=== PATIENT | female | born 1995 | race African-American/Black ===

== ENCOUNTER → 2019-10-29 11:31 | Outpatient (CLI) | payer OTHER, SELFPAY ==
[2019-10-30 14:11] LABS: COVID19 Sendout Not Detected (Not Detect)
== END ==
PROVIDERS: Visit Provider Physician Assistant
DX: Z11.59 Encounter for screening for other viral diseases (principal)
CPT/HCPCS: 87635

== ENCOUNTER 2019-11-01 10:29 | Day surgery (SDC) | payer OTHER, SELFPAY ==
[2019-10-16 15:20] VITALS: BMI 21.7
[2019-11-01] VITALS (9 sets, daily range): BP systolic 85–126; BP diastolic 51–75; PULSE 61–681; RESP 10–97; TEMP 36.5–37.4; O2SAT 96–100; BMI 21.7
[2019-11-01] MEDS: LACTATED RINGERS 1,000 ML 42 ML IV (11:05)
--- NOTE | 2019-11-01 12:06 | PM.PREOP ---
Pre-operative Note COVID-19 COVID-19 status: Negative Interval Note History & Physical reviewed/Exam performed by Physician: Yes Changes to H&P: No
[2019-11-01] MEDS: CEFAZOLIN 2 GM/100 ML FROZ.PIGGY IV (12:30)
--- NOTE | 2019-11-01 13:06 | SUR.OPER ---
Supine on padded OR bed, head on pillow, arms secured on padded arm boards at <90 degrees abduction, legs uncrossed, safety belt at abdomen, right leg draped in sterile field, tape over blanket over left lower leg, hip bump on right.
[2019-11-01] MEDS: BUPIVACAINE 0.25% W/ EPI 30 ML VIAL INJ (13:15)
--- NOTE | 2019-11-01 13:19 | SUR.OPER ---
post op shoe
[2019-11-01] MEDS: HYDROCODONE/ACET 5/325 TABLET 1 TAB PO (15:38)
--- NOTE | 2019-11-01 15:42 | PM.OP.1 ---
Operative Date/Time/Diagnoses Date of procedure: 11/01/19 Time of procedure: 13:00 Pre-op diagnosis: 1. 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 Osteotomy with lengthening correction metatarsal, 4th, right CPT code 26014 2. Application unit planer external fixation system right, CPT code 12922 3. 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 She endorses this is painful and it rubs on her shoes and pulse her toes under. She has not had any treatment for this. She is having difficulty with her shoe and boot wear. She is in the . She is hoping to get correction of her toe deformity to help her tolerate her boot and work. The risks and benefits of the procedure have been discussed with the patient even opportunity to ask questions. The risks of surgery include but are not limited to infection, malunion, nonunion, persistence of pain, damage to nerves and blood vessels, posttraumatic arthritis, DVT, PE, cardiopulmonary complications and . The patient expressed a thorough understanding of the risks and benefits of surgery and has elected to proceed. Consent was signed in the office. Surgeon: Blanca Butler Click Yes if Unassisted: No Anesthesia Type: General and Local Operative Notes Findings: Right 4th toe shortened 4th metatarsal Closure Type: primary Specimen(s): none sent Prosthetic devices, grafts, tissues, transplants, or devices: Orthofix small mini rail, for short tapered half pins. 062 K-wire for 1st toe pinning Estimated Blood Loss (mL): 10 Blood products transfused: none Tourniquet time (min): 120 Procedure in detail: Patient was seen the preoperative area the site of surgery was marked informed consent confirmed. The patient was brought back to the operating room by the anesthesia team and placed supine on the operative table. All bony prominences well padded. General anesthetic was administered. An ipsilateral thigh bump was placed. The patient was brought to the end of the table. A well-padded thigh tourniquet was placed. Right lower extremities prepped and draped in the standard sterile fashion. A formal time-out procedure was performed confirming the patient's side and site of surgery administration of appropriate preoperative antibiotics. All were in agreement. Attention was turned to the right foot. The mini C-arm fluoroscopy unit was brought in and trajectory for 4th toe and 4th metatarsal incisions were marked out on the skin. K-wires were placed percutaneously through the mini rail system into the 4th metatarsal. There is some difficulty getting purchase distally and 1 on the proximal pins at skived into the 3rd a therefore this was removed and replaced. Visualization was improved through a approximately 3 cm longitudinal incision getting better access to the bone for placement of the half pins in the narrow bone. The far far pins were placed 1st followed by the near near pinned. Once the pins were placed appropriately perfect [place] lateral x-rays demonstrated good bone purchase. Then these were removed and replaced with the half pins on the T-handle through the mini rail system. Once these were secured the rail was removed and using the K-wire to drill holes and then osteotomy the osteotomy was made between the central 2 holes. This was fully mobilized. The mini rail was then replaced. Distraction was completed to demonstrate that the osteotomy was fully mobile. The incision was irrigated and closed. Then this was compressed and the mini rail secured making sure there was plenty of clearance between the skin. Tourniquet was released. Hemostasis was achieved. Then attention turned to the pinning of the right 4th toe across the MTP joint this was completed with an 062 K-wire and advanced across the MTP joint to the level of the 1st pin. Once this was completed the foot was cleaned and dressed with Xeroform gauze 4x4s Kerlix and an Ced wrap. In the postoperative shoe was placed. There were no immediate complications. All counts were correct. The patient was woken from anesthesia and taken to PACU in good condition. Complications: none Post-operative Condition: stable Disposition: PACU Plan for aftercare: Nonweightbearing for 1st week. Will use crutches. Follow up in clinic in 1 week when lengthening will start and partial weight-bearing in the postoperative shoe. Keep incision and wrapped clean and dry. Aspirin for DVT prophylaxis. Will plan for lengthening quarter turn 3 times a day starting on postoperative day 7
--- NOTE | 2019-11-01 15:49 | SUR.PHASEI ---
1535 Hand off for break relief. Pt A&O, drowsy, HOB elevated, eating applesauce in prep for PO Rx. Pain mild, denies nausea. Skin warm and dry, resp unlabored. Ice/elevation to RLE.
--- NOTE | 2019-11-01 17:09 | SUR.PHASEII ---
Pt to be nonweight bearing. Crutches obtained and training done by PT.
--- NOTE | 2019-11-01 17:16 | PT.IIE ---
Current Diagnoses Other reduction defects of right lower limb (11/01/19) Surgery Performed Operation Date: 11/01/19 12:15 Actual Procedures p right 4th metatarsal osteotomy & - Blanca Butler MD s gradual lengthening w/ external fixation device w/ 4th toe pinning - Blanca Butler MD Medical History (Last Updated 10/16/19 @ 15:25 by Sirisha Juan RN) Brachymetatarsia of right foot (Acute) Physical Therapy Inpatient Evaluation/Re-Eval M1 PT/OT-IP Prior Functional Status Start: 11/01/19 17:00 Freq: NEEDED Status: Discharge Protocol: Document 11/01/19 17:03 (Rec: 11/01/19 17:16 [id number]) Medical Review Prior Functional Status Medical History Reviewed Yes Diet/Fluid Consistency Regular Communication no deficits ntoed Mobility and Gait independent without AD. 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 Activities of Daily Living and IADL's independent without AD Social History Household Members none Living Arrangements Apartment/Condo Number of Floors (Floors) Two Floors Number of Stairs To Enter/Railing? 12 JEANETTE to 2nd floor with B rail Employment Status Environmental Services Supervisor Employed Additional Social History Comment Pt lives alone in an apt [facility]. M2 PT-IP Current Condition Start: 11/01/19 17:00 Freq: NEEDED Status: Discharge Protocol: Document 11/01/19 17:03 (Rec: 11/01/19 17:16 [id number]) Physical Therapy Current Condition Current Condition Evaluation Date 11/01/19 Treatment Diagnosis Osteotomy with lengthening correction metatarsal Onset Date 11/01/19 Weight Bearing Status Weight Bearing Status Non-Weight Bearing Allowed Weight Bearing Amount (enter % Nonweightbearing for 1st week. or #) (%) Will use crutches M3 PT-IP Subjective Start: 11/01/19 17:00 Freq: NEEDED Status: Discharge Protocol: Document 11/01/19 17:03 (Rec: 11/01/19 17:16 [id number]) Subjective Physical Therapy Visit Type Type Initial Evaluation Visit Start Time 16:20 Visit Stop Time 16:40 Total Visit Minutes 20 Notes friend in room attended session Number of LABORATORY IMMUNOLOGIST Visits 0 M4 PT-IP Mobility and Gait Start: 11/01/19 17:00 Freq: NEEDED Status: Discharge Protocol: Document 11/01/19 17:03 (Rec: 11/01/19 17:16 [id number]) PT-Transfer Assessment Sit to and From Stand Sit to and from Stand Standby Assistance,Use of Upper Extremities Equipment Transfer Assistive Device Axillary Crutches Transfers Transfer Destination Chair Transfer Technique Stand Step Pivot Transfer Ability Level of Assist Standby Assistance,Use of Upper Extremities Comments Mobility Comments see A&P Gait Assessment Gait Gait Assistance Required: Standby Assistance Distance (Feet) 15 Able to Maintain Weight Bearing Status No During Gait Assistive Devices Assistive Device Axillary Crutches Orthotic/Prosthetic Devices or Brace: Yes Gait Deviations General Gait Pattern Antalgic Factors Limiting Gait Function Factors Limiting Gait Function Decreased Activity Tolerance, Decreased Strength,Limited Range of Motion,Poor Balance Comments Gait Comments see A&P Stair Climbing Assessment Comments Stair Climbing Comments Educated pt on using single axillary crutch on R and L rail to hop with friend CGA if both rails are too wide apart . PT-Balance Assessment Sitting Balance and Reactions Static Sitting Balance Ability Normal Dynamic Sitting Balance Ability Normal Standing Balance and Reactions Static Standing Balance Ability Normal Dynamic Standing Balance Ability Normal Device Used crutches M5 PT-IP Objective Assessments Start: 11/01/19 17:00 Freq: NEEDED Status: Discharge Protocol: Document 11/01/19 17:03 (Rec: 11/01/19 17:16 [id number]) Orientation Orientation/Cognition Level of Alertness Alert Orientation Name,Age,Birthday,Month,Date, Year,Day of Week,Place, Situation Language Function Ability No Deficits Noted Safety Awareness Understands Safety Issues Memory Description No Deficits Noted Strength Lower Extremity Strength Assessment Right Impaired M6 PT-IP Treatment Start: 11/01/19 17:00 Freq: NEEDED Status: Discharge Protocol: Document 11/01/19 17:03 (Rec: 11/01/19 17:16 [id number]) Physical Therapy Treatment Education Education Provided Precautions,Weight Bearing Status,Safety Equipment Issued Equipment Type and Company Issued axillary crutches and gait belt to patient. Educated pt on 2 point pattern with hopping gait d/t NWB R foot. Also educated pt on stair climbing technique with use of 1 rail and axillary crutch on opposite side to support with friend's CGA. M7 PT-IP Assessment and Plan Start: 11/01/19 17:00 Freq: NEEDED Status: Discharge Protocol: Document 11/01/19 17:03 (Rec: 11/01/19 17:16 [id number]) PT Summary Assessment and Plan Summary Impairments Pain,ROM,Strength,Balance, Transfers,Gait,Activity Tolerance Progress Towards Goals Safe For Discharge Assessment Summary This is evaluation only for crutch training for this 23 yo female s/p Osteotomy with lengthening correction metatarsal d/t her brachymetatarsia. Pt demonstrates safe use of axillary crutches to amb within the room with NWB on her R foot. She does feel slightly unsteady d/t change of position and medication but she recovered after sitting break. Educated pt on stair climbing technique with use of 1 rail and axillary crutch on opposite side to hop on steps and pt understood since she used crutches before. Recommended her to have friends over to provide CGA for stair climbing when she gets home. D/C from PT Frequency of Treatment Frequency Of Treatment Discharge Discharge Recommendations PT Discharge Recommendations Home Transportation Needs at Discharge Private Vehicle
== END 2019-11-01 16:57 | disposition home or self-care (01) ==
PROVIDERS: Referring Provider Orthopaedic Surgery Foot and Ankle Surgery; Visit Provider Orthopaedic Surgery Foot and Ankle Surgery
PROC: (CPT 20690; principal; 2019-11-01 12:15)
PROC: (CPT 20690; 2019-11-01 12:15)
DX: Q72.891 Other reduction defects of right lower limb (principal)
CPT/HCPCS: 20690; 28308; 97161; J0690; J1100; J1170; J2250; J2405; J2704; J3010